=== PATIENT | female | born 1965 | race Caucasian/White ===

== ENCOUNTER 2023-08-21 18:41 | Emergency (ER) | payer MEDICAID ==
[~2023-08-21] VITALS: Ht 162.6 cm; Wt 86.2 kg
[2023-08-21 18:46] VITALS: O2SAT 97
[2023-08-21 23:24] VITALS: BP 126/78
[2023-08-21] MEDS: KETOROLAC 30MG/ML VIAL IM ONE (23:24)
[2023-08-21 23:33] VITALS: TEMP 98.2
[2023-08-21] MEDS: ACETAMINOPHEN 500MG TABLET PO ONE (23:33)
[2023-08-22] MEDS ORDERED: NAPR-1176 MT (00:58)
[2023-08-22] MEDS ORDERED: LIDO700A15 TP (00:58)
[2023-08-22 01:25] VITALS: PULSE 65; RESP 16
== END 2023-08-22 01:26 | disposition home or self-care (01) ==
LOC: ER 18:41
DX: S40.011A Contusion of right shoulder, initial encounter (principal); X58.XXXA Exposure to other specified factors, initial encounter; Y93.89 Activity, other specified; Y92.89 Other specified places as the place of occurrence of the external cause; Y99.8 Other external cause status
CPT/HCPCS: 99283; 73030; 73060; 96372; J1885